=== PATIENT | female | born 1985 | race Caucasian/White ===

== ENCOUNTER 2020-05-27 07:07 | Emergency (ER) | payer OTHER ==
[~2020-05-27] VITALS: Ht 165.1 cm; Wt 59.0 kg
[2020-05-27] MEDS ORDERED: PEPCID AC20 MG PO (11:12)
[2020-05-27] MEDS ORDERED: ZOFRAN8 MG PO (11:12)
== END 2020-05-27 11:49 | disposition home or self-care (01) ==
LOC: ER 07:07
DX: K52.89 Other specified noninfective gastroenteritis and colitis (principal); Z33.1 Pregnant state, incidental; Z03.818 Encounter for observation for suspected exposure to other biological agents ruled out

== ENCOUNTER 2022-08-31 19:28 | Emergency (ER) | payer OTHER ==
[~2022-08-31] VITALS: Ht 165.1 cm; Wt 63.5 kg
[~2022-08-31 19:28] MED LIST: PEPCID AC20 MG PO; ZOFRAN8 MG PO
== END 2022-08-31 23:19 | disposition home or self-care (01) ==
LOC: ER 19:28
DX: L03.213 Periorbital cellulitis (principal); H10.9 Unspecified conjunctivitis; Z91.018 Allergy to other foods

== ENCOUNTER 2022-09-28 13:58 | Outpatient (CLI) | payer OTHER | END 2022-09-28 15:21 | disposition home or self-care (01) | LOC: PRENATAL 13:58 | PROVIDERS: ATTEND Obstetrics & Gynecology Maternal & Fetal Medicine | DX: O26.849 Uterine size-date discrepancy, unspecified trimester (principal); O36.8199 Decreased fetal movements, unspecified trimester, other fetus; O35.9XX0 Maternal care for (suspected) fetal abnormality and damage, unspecified, not applicable or unspecified; O09.529 Supervision of elderly multigravida, unspecified trimester; O24.419 Gestational diabetes mellitus in pregnancy, unspecified control; Z3A.32 32 weeks gestation of pregnancy ==

== ENCOUNTER 2022-10-26 13:48 | Outpatient (CLI) | payer OTHER | END 2022-10-26 15:45 | disposition home or self-care (01) | LOC: PRENATAL 13:48 | PROVIDERS: ATTEND Obstetrics & Gynecology Maternal & Fetal Medicine | DX: O26.849 Uterine size-date discrepancy, unspecified trimester (principal); O36.8199 Decreased fetal movements, unspecified trimester, other fetus; O35.9XX0 Maternal care for (suspected) fetal abnormality and damage, unspecified, not applicable or unspecified; O09.529 Supervision of elderly multigravida, unspecified trimester; Z3A.36 36 weeks gestation of pregnancy ==

== ENCOUNTER 2022-11-13 15:51 | Inpatient (IN) | payer OTHER ==
[~2022-11-13] VITALS: Ht 160 cm; Wt 68.0 kg
== END 2022-11-15 12:45 | disposition home or self-care (01) | DRG 807 ==
LOC: LDR 15:51 → OB/GYN 15:51
PROVIDERS: ADMIT Obstetrics & Gynecology; ATTEND Obstetrics & Gynecology
PROC: 10E0XZZ Delivery of Products of Conception, External Approach (ICD-10-PCS; principal; 2022-11-13)
PROC: 0KQM0ZZ Repair Perineum Muscle, Open Approach (ICD-10-PCS; 2022-11-13)
PROC: 4A1HXCZ Monitoring of Products of Conception, Cardiac Rate, External Approach (ICD-10-PCS; 2022-11-13)
DX: O70.1 Second degree perineal laceration during delivery (principal); Z37.0 Single live birth; Z3A.39 39 weeks gestation of pregnancy; Z20.822 Contact with and (suspected) exposure to COVID-19